=== PATIENT | female | born 1990 | race Caucasian/White ===

== ENCOUNTER 2023-03-21 12:00 | Day surgery (SDC) | payer OTHER ==
[2023-03-19 16:04] VITALS: BMI 26.1
[2023-03-21] MEDS ORDERED: Acetaminophen 325 MG TAB ONE (12:18)
[2023-03-21] MEDS ORDERED: Ketorolac Tromethamine 30 MG/ML VIAL ONE (12:18)
[2023-03-21] MEDS ORDERED: Gabapentin 300 MG CAP ONE (12:19)
[2023-03-21 12:36] LABS: Hemoglobin 12.6 g/dL (12.0-15.5); Mean Corpuscular HGB CONC 34.3 g/dL (32.0-36.0); Mean Corpuscular Hemoglobin 31.4 pg (27.0-33.0); Mean Corpuscular Volume 91.5 fl (81.6-98.3); Mean Platelet Volume 10.3 fl (7.4-10.4); Platelet Count 196 10x3/uL (150-450); RBC Distribution Width 12.3 % (11.5-14.5); Red Blood Cell (RBC) Count 4.01 10x6/uL (3.90-5.03)
[2023-03-21 13:18] LABS: Anion Gap 12 mmol/L (10-20); BUN (Urea Nitrogen) 8 mg/dL (7.0-18.7); Calc. Creatinine Clearance 127 mL/min (70-130); Calcium 9.2 mg/dL (7.8-10.44); Carbon Dioxide 23 mmol/L (22-29); Chloride 109 mmol/L (98-107); Estimated GFR 110; Glucose 100 mg/dL (70-105); Potassium 3.7 mmol/L (3.5-5.1); Sodium 140 mmol/L (136-145)
[2023-03-21 13:25] LABS: BHCG - Serum Negative (NEGATIVE); Pregs Control Background? CLEAR/WHITE (CLR/WHITE); Pregs Control Bar Appear? YES (CONTROL BAR)
[2023-03-21] MEDS ORDERED: Ropivacaine 0.5% HCl/PF (150 MG/30 ML VIAL) ONE (13:34)
[2023-03-21] MEDS ORDERED: Midazolam HCl 2 mg/2 ml Vial ONE (13:35)
[2023-03-21] MEDS ORDERED: Lidocaine 1% MPF 2 ML VIAL ONE (13:35)
[2023-03-21] MEDS ORDERED: Fentanyl 100 MCG/2 ML VIAL ONE (13:36)
[2023-03-21] MEDS ORDERED: PROPOFOL 40 ML ONE (13:49)
[2023-03-21] MEDS ORDERED: Bupivacaine HCl 0.5%/Epinephrine 1:200,000/PF 30 ml Vial ONE (13:49)
[2023-03-21] MEDS ORDERED: EPINEPHrine 1 MG/ML AMP ONE (13:49)
[2023-03-21] MEDS ORDERED: Fentanyl 250 MCG/5 ML VIAL ONE (13:50)
[2023-03-21] MEDS ORDERED: Glycopyrrolate 0.2 MG/ML 5 ML SYRINGE ONE (13:51)
[2023-03-21] MEDS ORDERED: Ondansetron PF 4 MG/2 ML Vial ONE (13:51)
[2023-03-21] MEDS ORDERED: Dexamethasone 4 mg/ml Vial ONE (13:51)
[2023-03-21] MEDS ORDERED: Lidocaine 2% PF 5 ML VIAL ONE (13:52)
[2023-03-21] MEDS ORDERED: CEFAZOLIN 2 GM VIAL ONE (13:53)
[2023-03-21] MEDS ORDERED: ePHEDrine Sulfate 50 MG/10 ML VIAL ONE (14:09)
[2023-03-21] MEDS ORDERED: Meperidine HCl/PF 25 MG/ML VIAL ONE (15:03)
== END 2023-03-21 16:15 | disposition home or self-care (01) ==
LOC: CSHSDC 12:00
PROVIDERS: ATTEND Orthopaedic Surgery
PROC: 0SBC4ZZ Excision of Right Knee Joint, Percutaneous Endoscopic Approach (ICD-10-PCS; principal; 2023-03-21)
DX: S83.241A Other tear of medial meniscus, current injury, right knee, initial encounter (principal); X58.XXXA Exposure to other specified factors, initial encounter; Z79.899 Other long term (current) drug therapy; Z88.5 Allergy status to narcotic agent; Z91.048 Other nonmedicinal substance allergy status; Z90.89 Acquired absence of other organs
CPT/HCPCS: 36415; 80048; 82306; 84703; 85027; J0171; J1100; J1885; J2001; J2175; J2250; J2405; J2704; J2795; J3010